=== PATIENT | female | born 2000 | race American Indian/Alaskan Native ===

== ENCOUNTER 2024-05-06 06:37 | Outpatient (REF) | payer OTHER, SELFPAY ==
--- NOTE | ~2024-05-06 | US_ITS ---
EXAMINATION: US PELVIS CLINICAL INFORMATION: Check IUD. Pelvic and perineal pain COMPARISON: None available. TECHNIQUE: Ultrasound of the pelvis is performed using both transabdominal and transvaginal transducers along with Doppler. Transvaginal imaging is performed due to inadequate visualization transabdominally. FINDINGS: Uterus: The uterus is anteverted , anteflexed and measures 6.5 x 3.4 x 4.6 cm. The uterus is homogeneous in echotexture. There is an intrauterine IUD in correct position. The uterus is smooth in contour and has normal myometrial echogenicity. No visible fibroid. Adnexa: Both ovaries are visualized. There is normal color flow to the adnexa. There is no ovarian torsion. There is no pelvic ascites or fluid collection. Right ovary measures 3.0 x 2.1 2.8 cm. Volume 8.7 mL. It appears unremarkable. Left ovary measures 2.7 x 2.1 x 2.2 cm. Volume 6.6 mL . It appears unremarkable. There is no free fluid in cul-de-sac. US/US pelvic and transvaginal IMPRESSION: There is a intrauterine IUD in correct position. The uterus is unremarkable. Ovaries are not unremarkable. There is no free fluid in cul-de-sac. Electronically signed by: Joey Stringer MD 05/06/2024 03:15 PM [facility]
== END 2024-05-06 06:38 | disposition home or self-care (01) ==
LOC: HO.UMASIMG 06:37
PROVIDERS: Visit Provider Nurse Practitioner Women's Health
DX: Z30.431 Encounter for routine checking of intrauterine contraceptive device (principal)
CPT/HCPCS: 76830; 76856

== ENCOUNTER → 2024-05-06 14:20 | Outpatient (BNV) | payer OTHER, SELFPAY | PROVIDERS: Visit Provider Radiology Diagnostic Radiology | DX: R10.2 Pelvic and perineal pain (principal) | CPT/HCPCS: 76830; 76856 ==